=== PATIENT | male | born 1980 | race Caucasian/White ===

== ENCOUNTER 2017-06-02 19:07 | Emergency (ER) | payer OTHER ==
[~2017-06-02] VITALS: Ht 177.8 cm; Wt 72.6 kg
--- NOTE | 2017-06-02 19:11 | PHYS DOC ---
Adult General Chief Complaint Chief Complaint: GROIN PAIN HPI HPI Patient is a 36 year old male who presents with inguinal mass. He states he's had this for approximately 18 months. He is in rehabilitation for meth and opiate abuse and states he's finally a place where he like to get it fixed. He denies any nausea, vomiting, pain. He states it is able to be reduced. He would like to wait several more weeks until he finishes his drug rehabilitation before he starts to have it fixed. Review of Systems Review of Systems Constitutional: Denies fever or chills [] Eyes: Denies change in visual acuity, redness, or eye pain [] HENT: Denies nasal congestion or sore throat [] Respiratory: Denies cough or shortness of breath [] Cardiovascular: No additional information not addressed in HPI [] GI: Denies abdominal pain, nausea, vomiting, bloody stools or diarrhea [] : Denies dysuria or hematuria [] Musculoskeletal: Denies back pain or joint pain [] Integument: Denies rash or skin lesions [] Neurologic: Denies headache, focal weakness or sensory changes [] Endocrine: Denies polyuria or polydipsia [] All other systems were reviewed and found to be within normal limits, except as documented in this note. Physical Exam Physical Exam Constitutional: Well developed, well nourished, no acute distress, non-toxic appearance. [] HENT: Normocephalic, atraumatic, bilateral external ears normal, oropharynx moist, no oral exudates, nose normal. [] Eyes: PERRLA, EOMI, conjunctiva normal, no discharge. [] Neck: Normal range of motion, no tenderness, supple, no stridor. [] Cardiovascular:Heart rate regular rhythm, no murmur [] Lungs & Thorax: Bilateral breath sounds clear to auscultation [] Abdomen: Bowel sounds normal, soft, no tenderness, no masses, no pulsatile masses. Nontender mass in the right inguinal canal that is reproducible after being in Trendelenburg Skin: Warm, dry, no erythema, no rash. [] Back: No tenderness, no CVA tenderness. [] Extremities: No tenderness, no cyanosis, no clubbing, ROM intact, no edema. [] Neurologic: Alert and oriented X 3, normal motor function, normal sensory function, no focal deficits noted. [] Psychologic: Affect normal, judgement normal, mood normal. [] Current Patient Data Vital Signs Vital Signs Date Time Temp Pulse Resp B/P (MAP) Pulse Ox O2 Delivery O2 Flow Rate FiO2 06/02/17 19:15 98.5 91 18 126/86 (99) 99 Room Air 98.5 EKG EKG [] Radiology/Procedures Radiology/Procedures [] Impressions: Right inguinal canal hernia Course & Med Decision Making Course & Med Decision Making Pertinent Labs and Imaging studies reviewed. (See chart for details) His hernia is easily reducible. He does not have pain and denied pain for several weeks. Do not see any reason this time to obtain imaging as he will follow-up on an outpatient with surgery and can have been obtained as an outpatient. Return precautions given. He is agreeable plan, being discharged in stable condition. Dragon Disclaimer Dragon Disclaimer This electronic medical record was generated, in whole or in part, using a voice recognition dictation system. Departure Departure Impression: Primary Impression: Inguinal hernia Disposition: HOME, SELF-CARE Condition: STABLE Referrals: RACHEL JAVED MD Patient Instructions: Hernia Additional Instructions: You have a hernia and will likely need to have it fixed in the future. Please call Dr. Javed's office and schedule an appointment with him. If you develop severe pain in the area of your hernia, you have nausea, you have troubles with bowel movements, If you develop fevers or you have other concerns please return back to emergency department immediately. CALLUM EVANS MD Jun 02, 2017 19:11
[2017-06-02 19:15] VITALS: BP 126/86
[2017-06-02 19:38] LABS: BILIRUBIN,URINE NEGATIVE (NEG); GLUCOSE,URINE NEGATIVE (NEG); NITRITE,URINE NEGATIVE (NEG); PH,URINE 7.5; PROTEIN,URINE NEGATIVE (NEG-TRACE); UROBILINOGEN,URINE 0.2 mg/dL (0.2 mg/dL)
[2017-06-02 19:57] LABS: BACTERIA,URINE 0 /HPF (0-FEW); RBC,URINE 0 /HPF (0-2); WBC,URINE 0 /HPF (0-4)
== END 2017-06-02 19:51 | disposition home or self-care (01) ==
LOC: ER 19:07
DX: K40.90 Unilateral inguinal hernia, without obstruction or gangrene, not specified as recurrent (principal)
CPT/HCPCS: 81001; 99283